=== PATIENT | male | born 1990 | race Native Hawaiian/Other Pacific Islander ===

== ENCOUNTER 2018-10-31 08:00 | Emergency (ER) | payer OTHER ==
[2018-10-31 08:07] VITALS: BP 138/89; PULSE 115; RESP 18; TEMP 99.8; O2SAT 98
--- NOTE | 2018-10-31 08:26 | C.PDOC ---
History Of Present Illness 28 yo male w/o PMHx come in for evaluation of cold sx associated with bodyaches, intermittent headache, nasal congestion, dry cough developed since yesterday. Otherwise pt denies high fever, severe headache, dizziness, visual changes, drooling, dysphagia, dyspnea, CP, SOB, palpitation, abd. pain, V/D, UTI sx, denies recent travel. Ambulatory, not in any apparent distress. Time Seen by Provider: 10/31/18 08:11 Chief Complaint (Nursing): Flu-like Symptoms History Per: Patient Past Medical History Reviewed: Historical Data, Nursing Documentation, Vital Signs Vital Signs: Last Vital Signs Temp 99.8 F H 10/31/18 08:01 Pulse 115 H 10/31/18 08:01 Resp 18 10/31/18 08:01 BP 138/89 10/31/18 08:01 Pulse Ox 98 10/31/18 08:01 - Medical History PMH: No Chronic Diseases Surgical History: No Surg Hx Family History: States: No Known Family Hx - Social History Hx Tobacco Use: No Hx Alcohol Use: Yes Hx Substance Use: No - Immunization History Hx Tetanus Toxoid Vaccination: No Hx Influenza Vaccination: No Hx Pneumococcal Vaccination: No Review Of Systems Except As Marked, All Systems Reviewed And Found Negative. Constitutional: Positive for: Chills, Malaise ENT: Positive for: Nose Discharge, Nose Congestion. Negative for: Ear Pain, Ear Discharge, Throat Pain Cardiovascular: Negative for: Chest Pain, Light Headedness Respiratory: Positive for: Cough. Negative for: Shortness of Breath, Wheezing Gastrointestinal: Negative for: Nausea, Vomiting, Abdominal Pain, Diarrhea Genitourinary: Negative for: Dysuria Skin: Negative for: Rash Neurological: Negative for: Weakness, Numbness, Headache, Dizziness Physical Exam - Physical Exam Appears: Well, Non-toxic, No Acute Distress Skin: Normal Color, Warm, Dry, No Rash Eye(s): bilateral: PERRL Ear(s): Bilateral: Normal Nose: No Flaring, No Discharge Oral Mucosa: Moist Throat: No Erythema, No Drooling Neck: Trachea Midline, Supple, Other ((-) meningeal sign) Cardiovascular: Rhythm Regular, No Murmur Respiratory: No Decreased Breath Sounds, No Accessory Muscle Use, No Stridor, No Wheezing Gastrointestinal/Abdominal: Soft, No Tenderness, No Distention, No Guarding Extremity: Normal ROM, No Swelling Neurological/Psych: Oriented x3, Normal Speech ED Course And Treatment O2 Sat by Pulse Oximetry: 98 Pulse Ox Interpretation: Normal Progress Note: On re-eval, pt is afebrile, hemodynmaicaly stable. Non-toxic. PulseOx 98% RA. ENT: no acute findings. neck: SUpple, (-) meningeal sign. LUngs: CTA B/L, BS equal B/L. Abd: benign, (-) guarding, (-) rebound. Neuorlogicaly intact. Pt has clinical findings c/w influenza-like illness. Pt advised. ref. to F/u with PMD in 2-3 days for re-evaluation. return to Ed if any worsening or new changes. Disposition Counseled Patient/Family Regarding: Diagnosis, Need For Followup, Rx Given - Disposition Referrals: Taco Maciel MD [Staff Provider] - Disposition: HOME/ ROUTINE Disposition Time: 08:23 Condition: STABLE Additional Instructions: Encourage fluids Alternate Tylenol 1g and Ibuprofen 600 mg every 6 hours for pain and fever Over-the counter medication for cold as need, consider " TheraFlu Cold and sinuses" take medication as prescribed Follow up with PMD in 2-3 days for re-evaluation. Return to ED if any worsening or new changes. Prescriptions: Ibuprofen [Motrin Tab] 600 mg PO BID #20 tab Loratadine/Pseudoephedrine [Loratadine-D 12 Hour Tablet] 1 each PO BID #10 tab.er.12h Oseltamivir Phosphate [Tamiflu] 75 mg PO BID #10 capsule Instructions: Flu, Adult (DC) Forms: [employer] (Kiswahili), Work Excuse - Clinical Impression Clinical Impression: Influenza-like illness
== END 2018-10-31 08:37 | disposition home or self-care (01) ==
LOC: C.ER 08:00
DX: J11.1 Influenza due to unidentified influenza virus with other respiratory manifestations (principal)